=== PATIENT | male | born 1995 | race Caucasian/White ===

== ENCOUNTER 2022-08-09 08:51 | Emergency (ER) | payer MEDICAID ==
[~2022-08-09] VITALS: Ht 180.3 cm; Wt 109.4 kg
[2022-08-09 08:53] VITALS: BP 129/78
--- NOTE | 2022-08-09 09:03 | NUR ---
PATIENT AMBULATED TO BED 12.
[2022-08-09] MEDS ORDERED: METOCLOPRAMIDE 10 MG TAB PO ONE (09:30)
[2022-08-09] MEDS ORDERED: PANTOPRAZOLE 40 MG TABEC PO ONE (09:30)
[2022-08-09] MEDS ORDERED: DICYCLOMINE HCL LIQUID 20 MG, ALUMINUM HYD/MAG/SIMETHICONE 30 ML, LIDOCAINE VISCOUS 2% ... PO ONE ×3 (09:30)
[2022-08-09] MEDS ORDERED: DICYCLOMINE HCL LIQUID 10 MG/5 ML UDC ONE (09:42)
[2022-08-09] MEDS ORDERED: ALUMINUM HYD/MAG/SIMETHICONE 30 ML UDC ONE (09:42)
--- NOTE | 2022-08-09 09:52 | NUR ---
pt Aox4. seen by provider. medications given as orded, tolerated medications well. no acute distress noted. O2 sat 99% ra
[2022-08-09] MEDS ORDERED: MAG355OR2 PO (10:22)
[2022-08-09] MEDS ORDERED: FAMO-90 PO (10:22)
[2022-08-09] MEDS ORDERED: METO-485 PO (10:22)
--- NOTE | 2022-08-09 10:30 | NUR ---
Patient discharged with v/s stable. Written and verbal after care instructions given and explained. Patient alert, oriented and verbalized understanding of instructions. Ambulatory with steady gait. All questions addressed prior to discharge. ID band removed. Patient advised to follow up with PMD. Rx of MYLANTA, PEPCID, REGLAN given. Patient educated on indication of medication including possible reaction and side effects. Opportunity to ask questions provided and answered.
== END 2022-08-09 10:30 | disposition home or self-care (01) ==
LOC: MED 08:51
DX: R06.6 Hiccough (principal); K29.70 Gastritis, unspecified, without bleeding; Z79.899 Other long term (current) drug therapy
CPT/HCPCS: 99284; J8597